=== PATIENT | male | born 1950 | race Caucasian/White ===

== ENCOUNTER 2023-10-15 10:03 | Inpatient (IN) ==
[2023-10-15 10:50] LABS: Hematocrit (blood only) 39.4 % (42.0-52.0); Hemoglobin 13.9 g/dl (14.0-18.0); Mean Corpuscular Hemoglobin 33.1 pg (25.0-34.0); Mean Corpuscular Hgb Conc 35.3 g/dL (32.0-36.0); Mean Corpuscular Volume 93.8 fL (80.0-100.0); Mean Platelet Volume 10.8 fL (9.4-12.4); Platelet Count 146 K/uL (130-400); RDW Coefficient of Variation 13.3 % (11.5-14.5); RDW Standard Deviation 45.8 fL (36.4-46.3); White Blood Count 11.34 K/ul (4.8-10.8)
[2023-10-15 11:08] LABS: Alanine Aminotransferase 29 U/L (7-52); Albumin Globulin Ratio 1.4 (0.9-2); Albumin Level 4.6 gm/dl (3.4-5.0); Alkaline Phosphatase 62 U/L (34-104); Anion Gap 10 (3-11); Bilirubin,Total 0.7 mg/dl (0.2-1.0); Blood Urea Nitrogen 17 mg/dl (6-23); Calcium 9.7 mg/dl (8.6-10.3); Carbon Dioxide 25 mmol/L (21-32); Chloride 97 mmol/L (98-107); Creatinine Clr Calc Pharmacy 59.9 ml/min; Est GFR (African American) 74.3 ml/min; Est GFR (Non-African American) 64.1 ml/min; Globulin 3.2 gm/dl (2.5-4.0); Glucose 151 mg/dl (70-99(Fasting)); Magnesium 1.6 mg/dl (1.7-2.4); Sodium 132 mmol/L (136-145); Total Protein 7.8 gm/dl (6.0-8.3)
[2023-10-15 11:13] LABS: Basophils # (auto) 0.04 K/uL (0.00-0.20); Basophils % (auto) 0.4 %; Eosinophils # (auto) 0.07 K/uL (0.00-0.50); Eosinophils % (auto) 0.6 %; Immature Granulocytes # (auto) 0.05 K/uL (0.01-0.20); Immature Granulocytes % (auto) 0.4 %; Lymphocytes # (auto) 0.37 K/uL (1.20-3.40); Lymphocytes % (auto) 3.3 %; Monocytes # (auto) 0.48 K/uL (0.11-0.59); Monocytes % (auto) 4.2 %; Neutrophils # (auto) 10.33 K/uL (1.40-6.50); Neutrophils % (auto) 91.1 %; Ovalocytes 1+
[2023-10-15 11:17] LABS: Partial Thromboplastin Ratio 1.2; Partial Thromboplastin Time 35 Seconds (21-31)
--- NOTE | 2023-10-15 11:20 | XRay Report ---
XR chest 1V portable CLINICAL HISTORY: Sepsis TECHNIQUE: Single frontal radiograph of the chest was obtained. Comparison: Comparison is made to chest radiograph 10/14/2023 FINDINGS: No lines and tubes are seen. The cardiomediastinal silhouette is normal. The lungs are clear. Bluntin g of the left costophrenic angle is secondary to extrapleural fat, although a small superimposed effu indio cannot be excluded. IMPRESSION: No acute abnormalities and in particular no radiographic evidence of pneumonia. Exclude a small left effusion. ACT 112: Negative or not required by law. Electronically signed by: David Desai M.D. 10/15/2023 11:18 AM
[2023-10-15] MEDS: SODIUM CHLORIDE 0.9% 500 ML IV ONE ×2 (11:33→15:10)
--- NOTE | 2023-10-15 12:03 | Emergency Department Note ---
ED Provider Note CHIEF COMPLAINT: This patient is HISTORY OF PRESENT ILLNESS: This [] patient presents to the emergency department [] REVIEW OF SYSTEMS: A review of systems was performed with positives and pertinent negatives listed in the history of present illness. 10 systems were reviewed and are otherwise negative. ALLERGIES: see below MEDICATIONS: see below PMH: see below SOCIAL HISTORY: see below DDx: [] PHYSICAL EXAM: Vital signs reviewed. General: Well-appearing, in no significant distress. HEENT: No scleral icterus, PERRLA, neck supple. Atraumatic. Cardiovascular: Regular rate and rhythm, no extra sounds. Pulmonary: Clear to auscultation bilaterally, normal work of breathing. Abdomen: Soft, nontender, nondistended, positive bowel sounds. Musculoskeletal: Atraumatic, no peripheral edema. Neurologic: Patient awake alert and oriented x 3, speech is clear Skin: Warm, dry, no rash EMERGENCY DEPARTMENT COURSE/MDM: [] MONITORING: An order for cardiac monitoring was placed and the patient is noted to be in a [] at [] beats per minute. RADIOLOGY: EKG: DISPOSITION: Past Med/Surg History Medical History (Updated 09/24/23 @ 10:[address] MD) Hemorrhoids Blind right eye History of prostate cancer dx'd 2019. hx brachytherapy + external beam radiation History of melanoma Purtscher's retinopathy of right eye Hearing loss GERD (gastroesophageal reflux disease) well controlled, stable per pt Hypertension variable per pt, states often elevated in clinical settings-reports home readings: SBP 110s-170s/DBP 70s per pt Aural vertigo x 1 episode BPH w urinary obs/LUTS Surgical History History of brachytherapy History of arthroscopy of both shoulders H/O melanoma excision History of esophagogastroduodenoscopy (EGD) History of rotator cuff surgery (10/01/18) History of colonoscopy (~02/2015) History of carpal tunnel release of both wrists (~2012) History of surgery on arm (~2012) History of prostate biopsy (11/02/19) History of prostate biopsy (03/23/19) Family History Father No problems noted. Mother Uterine cancer, Onset Age: 80 Brother No problems noted. Sister No problems noted. Son No problems noted. Denies family history of Breast cancer Colorectal cancer Social History Smoking Status: Never smoker Tobacco Type: Cigars Cigarettes Per Day: light cigar- occasional; Second Hand Exposure: No; Do You Dip or Chew Tobacco: No; Hx Alcohol Use: Yes Alcohol type: beer and hard liquor Alcohol Intake Frequency: Monthly or Less Hx Substance Use: No Preferred Language: Afghan Communication Ability: Effective Visual Impairment: Limited Hearing Ability: Use of Hearing Aid Treadle Cut Off Saw Operator Required: No Beliefs That Will Affect Care: None marital status: Current Living Situation: Spouse current occupational status: retired current occupation: Retired Mechanical Repairman Feels Safe at Home: Yes Childhood Exposure to Second-Hand Smoke: Yes Diet: regular Diet Comment: stays away from milk caffeine: Yes (2-3 cups of coffee/day ) during the past year weight has: remained stable Dental Care, Regularly: Yes Physical Activity Frequency Comment: online stretching and yoga Seatbelt Use: always Assistive Devices: Glasses and Hearing Aid - Bilateral Allergies Allergies Allergy/AdvReac Type Severity Reaction Status Date / Time hydrochlorothiazide AdvReac Intermediate Leg Verified 09/24/23 10:02 Swellling Home Meds Home Medications Medication Instructions Recorded Confirmed allopurinol 300 mg tablet 300 mg PO QAM 12/04/20 10/14/23 famotidine 20 mg tablet (Pepcid) 20 mg PO PM 12/04/20 10/14/23 calcium carbonate 600 mg-vitamin 1 tab PO QPM 02/18/22 10/14/23 D3 10 mcg (400 unit) tablet (Calcium with Vitamin D) cholecalciferol (vitamin D3) 25 25 mcg PO QPM 02/18/22 10/14/23 mcg (1,000 unit) capsule docusate sodium 100 mg capsule 100 mg PO BID 02/18/22 10/14/23 (Colace) folic acid 1 mg tablet 2 mg PO QAM 05/25/23 10/14/23 metoprolol succinate 50 mg 50 mg PO QAM 05/25/23 10/14/23 tablet,extended release 24 hr Previous Rx's Medication Instructions Recorded atorvastatin 80 mg tablet (Lipitor) 80 mg PO QPM 90 days #90 tabs 05/21/23 amlodipine 2.5 mg tablet 2.5 mg PO PRN #30 tabs 07/07/23 methotrexate sodium 2.5 mg tablet 2.5 mg PO .COMPLEX #96 tabs 07/20/23 Results & Data (ED) Vital Signs Vital Signs - 24 hr 10/15/23 10:06 10/15/23 10:30 10/15/23 10:32 Temperature 36.8 C Temperature Source Temporal Artery Scan Pulse Rate 120 H 125 H Pulse Rate [Apical] 124 H Respiratory Rate 16 18 Respiratory Effort / Characteristics Non-Labored Respiratory Depth Normal Blood Pressure 192/100 H Blood Pressure [Left Arm] 197/113 H Blood Pressure Mean 130 Blood Pressure Mean [Left Arm] 141 Pulse Oximetry 96 93 Oxygen Delivery Method Room Air Sepsis Recent Fever Within 48 Hours No Sepsis New/Unexplained Change in Mental Status No Sepsis Action Taken by Nursing No Action Required 10/15/23 10:32 Temperature Temperature Source Pulse Rate Pulse Rate [Apical] Respiratory Rate Respiratory Effort / Characteristics Respiratory Depth Blood Pressure Blood Pressure [Left Arm] Blood Pressure Mean Blood Pressure Mean [Left Arm] Pulse Oximetry Oxygen Delivery Method Room Air Sepsis Recent Fever Within 48 Hours Sepsis New/Unexplained Change in Mental Status Sepsis Action Taken by Nursing Laboratory Data 10/15/23 10:24 10/15/23 10:24 Lab Results 10/15/23 Range/Units 10:24 WBC 11.34 H (4.8-10.8) K/ul RBC 4.20 L (4.70-6.10) M/uL Hgb 13.9 L (14.0-18.0) g/dl Hct 39.4 L (42.0-52.0) % MCV 93.8 (80.0-100.0) fL MCH 33.1 (25.0-34.0) pg MCHC 35.3 (32.0-36.0) g/dL RDW Std Deviation 45.8 (36.4-46.3) fL RDW Coeff of Laurie 13.3 (11.5-14.5) % Plt Count 146 (130-400) K/uL MPV 10.8 (9.4-12.4) fL Immature Gran % (Auto) 0.4 % Neut % (Auto) 91.1 % Lymph % (Auto) 3.3 % Stone % (Auto) 4.2 % Eos % (Auto) 0.6 % Baso % (Auto) 0.4 % Neut # (Auto) 10.33 H (1.40-6.50) K/uL Lymph # (Auto) 0.37 L (1.20-3.40) K/uL Stone # (Auto) 0.48 (0.11-0.59) K/uL Eos # (Auto) 0.07 (0.00-0.50) K/uL Baso # (Auto) 0.04 (0.00-0.20) K/uL Immature Gran # (Auto) 0.05 (0.01-0.20) K/uL Ovalocytes 1+ PT 11.0 (9.0-12.0) Seconds INR 1.0 (0.9-1.1) APTT 35 H (21-31) Seconds PTT Ratio 1.2 Sodium 132 L (136-145) mmol/L Potassium TNP Chloride 97 L (98-107) mmol/L Carbon Dioxide 25 (21-32) mmol/L Anion Gap 10 (3-11) BUN 17 (6-23) mg/dl Creatinine 1.13 (0.6-1.4) mg/dl Est Cr Clr Drug Dosing 59.9 ml/min Est GFR ( Amer) 74.3 ml/min Est GFR (Non-Af Amer) 64.1 ml/min BUN/Creatinine Ratio 15.0 (10-20) Glucose 151 H (70-99(Fasting)) mg/dl Lactate 2.0 (0.4-2.0) mmol/L Calcium 9.7 (8.6-10.3) mg/dl Magnesium 1.6 L (1.7-2.4) mg/dl Total Bilirubin 0.7 (0.2-1.0) mg/dl AST TNP ALT 29 (7-52) U/L Alkaline Phosphatase 62 (34-104) U/L Troponin I High Sens 15.0 (0-20) pg/ml Total Protein 7.8 (6.0-8.3) gm/dl Albumin 4.6 (3.4-5.0) gm/dl Globulin 3.2 (2.5-4.0) gm/dl Albumin/Globulin Ratio 1.4 (0.9-2) Procalcitonin 0.08 (0-0.5) ng/ml Administered Medications Discontinued Medications Sodium Chloride (Nss) 500 mls @ 999 mls/hr IV .Q31M ONE Stop: 10/15/23 11:54 Last Admin: 10/15/23 11:33 Dose: 999 mls/hr Documented By: [facility] Imaging Data Radiologist's Impression: Chest X-Ray 10/15/23 10:32 XR chest 1V portable CLINICAL HISTORY: Sepsis TECHNIQUE: Single frontal radiograph of the chest was obtained. Comparison: Comparison is made to chest radiograph 10/14/2023 FINDINGS: No lines and tubes are seen. The cardiomediastinal silhouette is normal. The lungs are clear. Blunting of the left costophrenic angle is secondary to extrapleural fat, although a small superimposed effusion cannot be excluded. IMPRESSION: No acute abnormalities and in particular no radiographic evidence of pneumonia. Exclude a small left effusion. ACT 112: Negative or not required by law. Electronically signed by: David Desai M.D. 10/15/2023 11:18 AM Discharge Plan Visit Data Chief Complaint: Fever Stated Complaint: 102 FEVER ONGOING, WEAKNESS, REF BY DOC, CHEST QING ED Provider: Keshav Richards Forms Stand Al[facility]: [facility] [employer] Prescriptions Prescriptions: No Action calcium carbonate-vitamin D3 [Calcium with Vitamin D] 600 mg-10 mcg (400 unit) tablet 1 tab PO QPM cholecalciferol (vitamin D3) 25 mcg (1,000 unit) capsule 25 mcg PO QPM docusate sodium [Colace] 100 mg capsule 100 mg PO BID allopurinol 300 mg tablet 300 mg PO QAM famotidine [Pepcid] 20 mg tablet 20 mg PO PM atorvastatin [Lipitor] 80 mg tablet 80 mg PO QPM 90 Days Qty: 90 3RF methotrexate sodium 2.5 mg tablet 2.5 mg PO .COMPLEX Qty: 96 0RF Rx Instructions: 8 tabs po once a week in split dose. amlodipine 2.5 mg tablet 2.5 mg PO PRN Qty: 30 2RF Rx Instructions: Take Amlodipine 2.5 mg daily as needed for SBP > 160 mm Hg metoprolol succinate 50 mg tablet extended release 24 hr 50 mg PO QAM folic acid 1 mg tablet 2 mg PO QAM Referrals Referrals: Cassandra Lane MD [Primary Care Provider] -
[2023-10-15] MEDS: SODIUM CHLORIDE 0.9% 1,000 ML IV SCH (12:04)
[2023-10-15 12:14] LABS: Adenovirus PCR Not Detected (NotDetected); Bordetella parapertussis PCR Not Detected (NotDetected); Bordetella pertussis PCR Not Detected (NotDetected); Chlamydia pneumoniae PCR Not Detected (NotDetected); Coronavirus 229E PCR Not Detected (NotDetected); Coronavirus CoV-2 (COVID19)PCR Not Detected (NotDetected); Coronavirus HKU1 PCR Not Detected (NotDetected); Coronavirus NL63 PCR Not Detected (NotDetected); Coronavirus OC43PCR Not Detected (NotDetected); Human Metapneumovirus PCR Not Detected (NotDetected); Influenza A PCR Not Detected (NotDetected); Influenza B PCR Not Detected (NotDetected); Mycoplasma pneumoniae PCR Not Detected (NotDetected); Parainfluenza Virus 1 PCR Not Detected (NotDetected); Parainfluenza Virus 2 PCR Not Detected (NotDetected); Parainfluenza Virus 3 PCR Not Detected (NotDetected); Parainfluenza Virus 4 PCR Not Detected (NotDetected); Respiratory Syncytial VirusPCR Not Detected (NotDetected); Rhinovirus/Enterovirus PCR Not Detected (NotDetected)
[2023-10-15 12:22] LABS: Potassium 3.8 mmol/L (3.5-5.1)
[2023-10-15] MEDS: OPTIRAY 320 125ml IV ONE (12:41)
[2023-10-15] MEDS: ACETAMINOPHEN 1,000 MG/100 ML VIAL IV STA (12:51)
--- NOTE | 2023-10-15 12:58 | CT Scan Report ---
CT angio chest PE protocol CLINICAL HISTORY: SOB, tachy, ?PE TECHNIQUE: Multidetector row helical CT of the chest was performed with angiographic protocol. Avila l and sagittal reformations were obtained. Coronal and sagittal MIPS were obtained from the axial germain a set and were submitted for review. Automated dose lowering techniques and/or adjustment according to patient size were utilized for this exam. CT DOSE: 887.81 mGy.cm Comparison: Comparison is made to CT chest 01/30/[address] abdomen pelvis 04/01/2023 FINDINGS: Lungs and pleura: Bronchiectasis and atelectasis are seen. Interstitial thickening is seen. Faint tr ee-in-bud nodularity is seen in the bilateral upper lobes. There are pulmonary nodules including the followin mm nodule in the right lung base (series 4 image 51). This was not seen on prior CT abdomen pelvis. 3 mm nodule in the left lower lobe (image 71), also not seen on prior CT abdomen pelvis. Heart and pericardium: Heart size is normal. No pericardial effusion. Vessels: Mild atherosclerotic changes in the aorta and coronary arteries. Mediastinum and zakiya: Subcentimeter lymph nodes are seen. Chest wall and lower neck: Unremarkable. Abdomen: A hiatal hernia is seen. Bones: Degenerative changes in the thoracic spine. IMPRESSION: 1. No evidence of pulmonary embolus. 2. Tree in bud nodularity of the bilateral upper lobes may represent infectious/inflammatory process with reactive lymph nodes. 3. New pulmonary nodules in the bilateral lung bases. Three-month follow-up is recommended to exclud e underlying malignancy. ACT 112: Positive. There are findings on this exam that require communication between the performing entity and the patient following Patient Test Result Information Act ([place] Act 112) guidelines. Electronically signed by: David Desai M.D. 10/15/2023 12:56 PM
[2023-10-15 13:45] LABS: Appearance Urine Clear (Clear); Bacteria Urine Automated Negative (Negative); Bilirubin Urine Negative (Negative); Blood Urine 1+ (Negative); Color Urine Yellow; Glucose Urine UA Negative (Negative); Ketones Urine Negative (Negative); Leukocyte Esterase Urine Negative (Negative); Nitrite Urine Negative (Negative); Protein Urine 2+ (Negative); RBC Urine Automated 0-4 /hpf (0-4); Specific Gravity Urine > 1.045 (1.000-1.030); Urobilinogen Urine Negative (Negative); WBC Urine Automated 0 /hpf (0-5); pH Urine 5.5 (4.5-7.5)
--- NOTE | 2023-10-15 14:31 | Emergency Department Note ---
Impression & Plan Febrile illness, acute, Pneumonitis, SIRS (systemic inflammatory response syndrome), Generalized weakness ED Provider Note NAME: MARCO A KAUR AGE: 72 SEX: Male INFORMANT: Patient ED PROVIDER(S): Keshav Richards MD CHIEF COMPLAINT: Fever PLAN: Disposition: Admitted Outpatient prescription management: none Referral: None MEDICAL DECISION MAKING: Patient presented to the emergency room because of complaints of fever. He is increasingly short of breath over the last 3 days and a workup was initiated. Patient was tachycardic. He was hypertensive and initially afebrile. The patient then spiked a fever of 103 here. He was given Tylenol. Fluids were initiated. Chest x-ray was unremarkable. Patient's blood work revealed mild leukocytosis. Chemistry panel was unremarkable. Cardiac troponin was within normal limits. The patient's ECG did show a sinus tachycardia without ischemia. Based upon his complaints and negative chest x-ray CT imaging of the chest was performed. He had inflammatory tree-in-bud opacities noted in the upper lobes. Nodules were noted in the lower lobes that the patient was advised of and also told that he needs repeat imaging in 3 months. was present. Patient's fever did improve. He felt somewhat better after fluids and Tylenol. He was empirically given cefepime and doxycycline. Patient was asked more details about his history. No recent travel. Patient did remember then about a few months ago he had a tick bite. He states he was tested the day that he found the tick and it came back negative for Lyme. Patient denied any rash or joint issues. Laboratory testing for tickborne illness added to his blood work. Discussed treatment options with the patient and with his state of illness over the last 24 hours patient and do not feel he is well enough to go home. Discussed the option of IV antibiotics and inpatient treatment given the pending blood cultures and tickborne labs. Patient and are in agreement and would prefer admission. Consultation was made with Dr. Sean Awan of the [facility] service. Patient was evaluated in the ER for further management. Care/management discussed with: actuary manager Level of care consideration(s): After review of the information above and other included data, I feel the patient requires escalation of care to admission. Triage Nursing notes: reviewed and agree them. Vital Signs: reviewed and remarkable for hypertension and tachycardia Additional History obtained from: none Chronic Medical/Social Conditions affecting care: Hypertension Prior/ Outside/ External records reviewed: none Differential Diagnosis: Viral syndrome, pneumonia, influenza, meningitis, urinary tract infection, sepsis, bacteremia, tickborne illness, as well as other pathologies. Diagnostics, independently interpreted by me: ECG: Twelve-lead ECG reveals sinus tachycardia [address] elevation or depression. No PACs or PVCs. Cardiac Monitoring: Cardiac monitoring ordered by me: The patient was placed on continuous cardiac monitoring and observed. It revealed a sinus tachycardic rhythm at 104 beats per minute without ectopy or evidence of dysrhythmia. Medical decision rules: none Imaging studies: Chest x-ray. Findings: A chest x-ray was performed and revealed no pneumothorax, effusion, infiltrate, pulmonary edema, free air under the diaphragm, or wide mediastinum. Impression: No acute disease. CT PE study reveals tree-in-bud opacities in the upper lobes and scattered nodules in the lower lobes. No pulmonary embolus or pneumothorax. HPI: 72 year old Male arrives for evaluation of fever. Patient notes increasing shortness of breath and fever of the last 3 days. He states that he got much worse over the last 24 hours and is very weak and experiencing fevers, chills, . He did not feel that he could function well due to his illness. He was tested for COVID and the flu and that was negative. Patient denies any sick contacts or recent travel. Pt denies LOC, headache, diaphoresis, visual changes, neck pain, chest pain, breathing difficulties, nausea, vomiting, abdominal pain, back pain, melena, hematochezia, urinary symptoms, numbness, lymphadenopathy, rash, or other complaints. PAST MEDICAL HISTORY: See Below, hypertension PAST SURGICAL HISTORY: See Below, prostate seeds SOCIAL HISTORY: See Below, HOME MEDICATIONS: See Below ALLERGIES: See Below VITALS: See Below PHYSICAL EXAMINATION: GENERAL: Awake, alert, ill-appearing, in no distress HENT: Normocephalic, atraumatic. Oropharynx unremarkable. EYES: Normal conjunctiva. Sclera non-icteric. NECK: Inspection normal. Non-tender. Supple. No nuchal rigidity. FROM. No masses. RESPIRATORY: Clear to auscultation. No wheezes. No rales. Normal respiratory effort. CARDIAC: Nor tachycardic mal rate. Normal rhythm. No murmurs. No rubs. Extremities warm and well perfused. Pulses equal. No JVD. GI: Soft, non-distended. No tenderness to palpation. No rebound or guarding. No masses. RECTAL: Deferred. MUSCULOSKELETAL: Atraumatic. Chest examination reveals no tenderness. The back is symmetrical on inspection without obvious abnormality. There is no CVA tenderness to palpation. No joint edema. LOWER EXTREMITIES: Calves are equal size bilaterally and non-tender. No edema. No discoloration. NEURO: Normal sensorium. No sensory or motor deficits noted. SKIN: Flushed. No rash or jaundice noted. PROCEDURES: none CRITICAL CARE: none OBSERVATION NOTE: none Past Med/Surg History Medical History Hemorrhoids Blind right eye History of prostate cancer dx'd 2019. hx brachytherapy + external beam radiation History of melanoma Purtscher's retinopathy of right eye Hearing loss GERD (gastroesophageal reflux disease) well controlled, stable per pt Hypertension variable per pt, states often elevated in clinical settings-reports home readings: SBP 110s-170s/DBP 70s per pt Aural vertigo x 1 episode BPH w urinary obs/LUTS Surgical History History of brachytherapy History of arthroscopy of both shoulders H/O melanoma excision back History of esophagogastroduodenoscopy (EGD) History of rotator cuff surgery (10/01/18) Left / Right History of colonoscopy (~02/2015) History of carpal tunnel release of both wrists (~2012) History of surgery on arm (~2012) a piece of steel removed > right History of prostate biopsy (11/02/19) Benign History of prostate biopsy (03/23/19) Mack 3+3 Family History Father , Passed age 88 of heart failure No problems noted. Mother , Passed age 92 of natural causes Uterine cancer, Onset Age: 80 had RXT Brother , Passed age 65 of scleroderma No problems noted. Sister , Passed age 61 of scleroderma No problems noted. Son No problems noted. Denies family history of Breast cancer Colorectal cancer Social History Smoking Status: Never smoker Tobacco Type: Cigars Cigarettes Per Day: light cigar- occasional; Second Hand Exposure: No; Do You Dip or Chew Tobacco: No; Hx Alcohol Use: Yes Alcohol type: beer and hard liquor Alcohol Intake Frequency: Monthly or Less Hx Substance Use: No Preferred Language: Portuguese Communication Ability: Effective Visual Impairment: Limited Hearing Ability: Use of Hearing Aid Solution Specialist Required: No Beliefs That Will Affect Care: None marital status: Current Living Situation: Spouse current occupational status: retired current occupation: Retired Mechanical Repairman Feels Safe at Home: Yes Childhood Exposure to Second-Hand Smoke: Yes Diet: regular Diet Comment: stays away from milk caffeine: Yes (2-3 cups of coffee/day ) during the past year weight has: remained stable Dental Care, Regularly: Yes Physical Activity Frequency Comment: online stretching and yoga Seatbelt Use: always Assistive Devices: Glasses and Hearing Aid - Bilateral Allergies Allergies Allergy/AdvReac Type Severity Reaction Status Date / Time hydrochlorothiazide AdvReac Intermediate Leg Verified 09/24/23 [facility] Home Medications Medication Instructions Recorded Confirmed allopurinol 300 mg tablet 300 mg PO QAM 12/04/20 10/15/23 famotidine 20 mg tablet (Pepcid) 20 mg PO PM 12/04/20 10/15/23 calcium carbonate 600 mg-vitamin 1 tab PO QPM 02/18/22 10/15/23 D3 10 mcg (400 unit) tablet (Calcium with Vitamin D) cholecalciferol (vitamin D3) 25 25 mcg PO QPM 02/18/22 10/15/23 mcg (1,000 unit) capsule docusate sodium 100 mg capsule 100 mg PO BID 02/18/22 10/15/23 (Colace) folic acid 1 mg tablet 2 mg PO QAM 05/25/23 10/15/23 metoprolol succinate 50 mg 50 mg PO QAM 05/25/23 10/15/23 tablet,extended release 24 hr Tylenol 1 tab PO UD 10/15/23 10/15/23 ibuprofen 1 tab PO UD 10/15/23 10/15/23 Previous Rx's Medication Instructions Recorded atorvastatin 80 mg tablet (Lipitor) 80 mg PO QPM 90 days #90 tabs 05/21/23 amlodipine 2.5 mg tablet 2.5 mg PO PRN #30 tabs 07/07/23 methotrexate sodium 2.5 mg tablet 2.5 mg PO .COMPLEX #96 tabs 10/15/23 Results & Data (ED) Vital Signs Vital Signs - 24 hr 10/15/23 10:06 10/15/23 10:30 10/15/23 10:30 Temperature 36.8 C Temperature Source Temporal Artery Scan Pulse Rate 120 H Pulse Rate [Apical] 124 H Pulse Rate from SpO2 Sensor Respiratory Rate 16 18 Respiratory Effort / Characteristics Non-Labored Respiratory Depth Normal Blood Pressure 192/100 H 197/113 H Blood Pressure [Left Arm] 197/113 H Blood Pressure Mean 130 149 Blood Pressure Mean [Left Arm] 141 Pulse Oximetry 96 93 Oxygen Delivery Method Room Air Sepsis Recent Fever Within 48 Hours No Sepsis New/Unexplained Change in Mental Status No Sepsis Action Taken by Nursing No Action Required 10/15/23 10:31 10/15/23 10:32 10/15/23 10:32 Temperature Temperature Source Pulse Rate 126 H 125 H Pulse Rate [Apical] Pulse Rate from SpO2 Sensor 126 H Respiratory Rate 21 Respiratory Effort / Characteristics Respiratory Depth Blood Pressure Blood Pressure [Left Arm] Blood Pressure Mean Blood Pressure Mean [Left Arm] Pulse Oximetry 94 Oxygen Delivery Method Room Air Sepsis Recent Fever Within 48 Hours Sepsis New/Unexplained Change in Mental Status Sepsis Action Taken by Nursing 10/15/23 11:00 10/15/23 11:00 10/15/23 11:30 Temperature Temperature Source Pulse Rate 127 H 123 H Pulse Rate [Apical] Pulse Rate from SpO2 Sensor 126 H 123 H Respiratory Rate 15 16 Respiratory Effort / Characteristics Respiratory Depth Blood Pressure 198/111 H Blood Pressure [Left Arm] Blood Pressure Mean 164 Blood Pressure Mean [Left Arm] Pulse Oximetry 94 94 Oxygen Delivery Method Sepsis Recent Fever Within 48 Hours Sepsis New/Unexplained Change in Mental Status Sepsis Action Taken by Nursing 10/15/23 11:30 10/15/23 12:00 10/15/23 12:00 Temperature Temperature Source Pulse Rate Pulse Rate [Apical] Pulse Rate from SpO2 Sensor 118 H Respiratory Rate 20 Respiratory Effort / Characteristics Respiratory Depth Blood Pressure 188/109 H 186/101 H Blood Pressure [Left Arm] Blood Pressure Mean 145 131 Blood Pressure Mean [Left Arm] Pulse Oximetry 98 Oxygen Delivery Method Sepsis Recent Fever Within 48 Hours Sepsis New/Unexplained Change in Mental Status Sepsis Action Taken by Nursing 10/15/23 12:04 10/15/23 12:30 10/15/23 12:30 Temperature 39.5 C H Temperature Source Oral Pulse Rate 123 H Pulse Rate [Apical] Pulse Rate from SpO2 Sensor Respiratory Rate 26 H Respiratory Effort / Characteristics Respiratory Depth Blood Pressure 188/100 H Blood Pressure [Left Arm] Blood Pressure Mean 123 Blood Pressure Mean [Left Arm] Pulse Oximetry Oxygen Delivery Method Sepsis Recent Fever Within 48 Hours Sepsis New/Unexplained Change in Mental Status Sepsis Action Taken by Nursing 10/15/23 13:00 10/15/23 13:00 10/15/23 13:16 Temperature 37.6 C H Temperature Source Oral Pulse Rate 116 H Pulse Rate [Apical] Pulse Rate from SpO2 Sensor 116 H Respiratory Rate 22 Respiratory Effort / Characteristics Respiratory Depth Blood Pressure 170/88 H Blood Pressure [Left Arm] Blood Pressure Mean 125 Blood Pressure Mean [Left Arm] Pulse Oximetry 92 Oxygen Delivery Method Sepsis Recent Fever Within 48 Hours Sepsis New/Unexplained Change in Mental Status Sepsis Action Taken by Nursing 10/15/23 13:30 10/15/23 13:30 10/15/23 14:00 Temperature Temperature Source Pulse Rate 110 H Pulse Rate [Apical] Pulse Rate from SpO2 Sensor 110 H Respiratory Rate 18 Respiratory Effort / Characteristics Respiratory Depth Blood Pressure 131/84 133/83 Blood Pressure [Left Arm] Blood Pressure Mean 107 108 Blood Pressure Mean [Left Arm] Pulse Oximetry 93 Oxygen Delivery Method Sepsis Recent Fever Within 48 Hours Sepsis New/Unexplained Change in Mental Status Sepsis Action Taken by Nursing 10/15/23 14:00 10/15/23 14:30 10/15/23 14:30 Temperature Temperature Source Pulse Rate 104 H 100 H Pulse Rate [Apical] Pulse Rate from SpO2 Sensor 104 H 101 H Respiratory Rate 20 18 Respiratory Effort / Characteristics Respiratory Depth Blood Pressure 152/82 H Blood Pressure [Left Arm] Blood Pressure Mean 105 Blood Pressure Mean [Left Arm] Pulse Oximetry 93 94 Oxygen Delivery Method Sepsis Recent Fever Within 48 Hours Sepsis New/Unexplained Change in Mental Status Sepsis Action Taken by Nursing 10/15/23 15:00 10/15/23 15:00 10/15/23 15:30 Temperature Temperature Source Pulse Rate 94 H Pulse Rate [Apical] Pulse Rate from SpO2 Sensor 96 H Respiratory Rate 18 Respiratory Effort / Characteristics Respiratory Depth Blood Pressure 156/84 H 149/85 H Blood Pressure [Left Arm] Blood Pressure Mean 109 113 Blood Pressure Mean [Left Arm] Pulse Oximetry 94 Oxygen Delivery Method Sepsis Recent Fever Within 48 Hours Sepsis New/Unexplained Change in Mental Status Sepsis Action Taken by Nursing 10/15/23 15:30 10/15/23 15:58 10/15/23 16:00 Temperature Temperature Source Pulse Rate 95 H 93 H Pulse Rate [Apical] Pulse Rate from SpO2 Sensor 95 H Respiratory Rate 19 Respiratory Effort / Characteristics Respiratory Depth Blood Pressure 150/95 H Blood Pressure [Left Arm] Blood Pressure Mean 111 Blood Pressure Mean [Left Arm] Pulse Oximetry 96 Oxygen Delivery Method Sepsis Recent Fever Within 48 Hours Sepsis New/Unexplained Change in Mental Status Sepsis Action Taken by Nursing 10/15/23 16:00 10/15/23 16:30 10/15/23 16:30 Temperature Temperature Source Pulse Rate 96 H 96 H Pulse Rate [Apical] Pulse Rate from SpO2 Sensor 89 96 H Respiratory Rate 20 26 H Respiratory Effort / Characteristics Respiratory Depth Blood Pressure 155/83 H Blood Pressure [Left Arm] Blood Pressure Mean 109 Blood Pressure Mean [Left Arm] Pulse Oximetry 93 97 Oxygen Delivery Method Sepsis Recent Fever Within 48 Hours Sepsis New/Unexplained Change in Mental Status Sepsis Action Taken by Nursing 10/15/23 17:00 10/15/23 17:00 10/15/23 17:34 Temperature Temperature Source Pulse Rate 98 H 118 H Pulse Rate [Apical] Pulse Rate from SpO2 Sensor 98 H 117 H Respiratory Rate 19 19 Respiratory Effort / Characteristics Respiratory Depth Blood Pressure 170/92 H Blood Pressure [Left Arm] Blood Pressure Mean 129 Blood Pressure Mean [Left Arm] Pulse Oximetry 97 97 Oxygen Delivery Method Sepsis Recent Fever Within 48 Hours Sepsis New/Unexplained Change in Mental Status Sepsis Action Taken by Nursing 10/15/23 17:36 Temperature 37.5 C Temperature Source Oral Pulse Rate Pulse Rate [Apical] Pulse Rate from SpO2 Sensor Respiratory Rate Respiratory Effort / Characteristics Respiratory Depth Blood Pressure Blood Pressure [Left Arm] Blood Pressure Mean Blood Pressure Mean [Left Arm] Pulse Oximetry Oxygen Delivery Method Sepsis Recent Fever Within 48 Hours Sepsis New/Unexplained Change in Mental Status Sepsis Action Taken by Nursing Laboratory Data 10/15/23 10:24 10/15/23 11:46 Lab Results 10/15/23 10/15/23 10/15/23 Range/Units 10:24 11:03 11:46 WBC 11.34 H (4.8-10.8) K/ul RBC 4.20 L (4.70-6.10) M/uL Hgb 13.9 L (14.0-18.0) g/dl Hct 39.4 L (42.0-52.0) % MCV 93.8 (80.0-100.0) fL MCH 33.1 (25.0-34.0) pg MCHC 35.3 (32.0-36.0) g/dL RDW Std Deviation 45.8 (36.4-46.3) fL RDW Coeff of Laurie 13.3 (11.5-14.5) % Plt Count 146 (130-400) K/uL MPV 10.8 (9.4-12.4) fL Immature Gran % (Auto) 0.4 % Neut % (Auto) 91.1 % Lymph % (Auto) 3.3 % [place] % (Auto) 4.2 % Eos % (Auto) 0.6 % Baso % (Auto) 0.4 % Neut # (Auto) 10.33 H (1.40-6.50) K/uL Lymph # (Auto) 0.37 L (1.20-3.40) K/uL [place] # (Auto) 0.48 (0.11-0.59) K/uL Eos # (Auto) 0.07 (0.00-0.50) K/uL Baso # (Auto) 0.04 (0.00-0.20) K/uL Immature Gran # (Auto) 0.05 (0.01-0.20) K/uL Ovalocytes 1+ PT 11.0 (9.0-12.0) Seconds INR 1.0 (0.9-1.1) APTT 35 H (21-31) Seconds PTT Ratio 1.2 Sodium 132 L (136-145) mmol/L Potassium TNP 3.8 Chloride 97 L (98-107) mmol/L Carbon Dioxide 25 (21-32) mmol/L Anion Gap 10 (3-11) BUN 17 (6-23) mg/dl Creatinine 1.13 (0.6-1.4) mg/dl Est Cr Clr Drug Dosing 59.9 ml/min Est GFR ( Amer) 74.3 ml/min Est GFR (Non-Af Amer) 64.1 ml/min BUN/Creatinine Ratio 15.0 (10-20) Glucose 151 H (70-99(Fasting)) mg/dl Lactate 2.0 (0.4-2.0) mmol/L Calcium 9.7 (8.6-10.3) mg/dl Magnesium 1.6 L (1.7-2.4) mg/dl Total Bilirubin 0.7 (0.2-1.0) mg/dl AST TNP 24 ALT 29 (7-52) U/L Alkaline Phosphatase 62 (34-104) U/L Troponin I High Sens 15.0 (0-20) pg/ml Total Protein 7.8 (6.0-8.3) gm/dl Albumin 4.6 (3.4-5.0) gm/dl Globulin 3.2 (2.5-4.0) gm/dl Albumin/Globulin Ratio 1.4 (0.9-2) Procalcitonin 0.08 (0-0.5) ng/ml Urine Color Urine Appearance (Clear) Urine pH (4.5-7.5) Ur Specific [place] (1.000-1.030) Urine Protein (Negative) Urine Glucose (UA) (Negative) Urine Ketones (Negative) Urine Blood (Negative) Urine Nitrite (Negative) Urine Bilirubin (Negative) Urine Urobilinogen (Negative) Ur Leukocyte Esterase (Negative) Urine WBC (Auto) (0-5) /hpf Urine RBC (Auto) (0-4) /hpf U Hyaline Cast (Auto) (0-5) /lpf U Epithel Cells (Auto) (0-5) /lpf Urine Bacteria (Auto) (Negative) Adenovirus (PCR) Not Detected (NotDetected) Anaplasma Smear See Comment Babesia Smear See Comment B. pertussis DNA (PCR) Not Detected (NotDetected) B.parapertussis DNA PCR Not Detected (NotDetected) Lyme Disease IgG Ab (Negative) Lyme Disease IgM Ab (Negative) C. pneumoniae DNA (PCR) Not Detected (NotDetected) Coronavirus OC43 (PCR) Not Detected (NotDetected) Coronavirus HKU1 (PCR) Not Detected (NotDetected) Coronavirus 229E (PCR) Not Detected (NotDetected) SARS-CoV-2 (PCR) Not Detected (NotDetected) Coronavirus NL63 (PCR) Not Detected (NotDetected) Human Metapneumovir PCR Not Detected (NotDetected) Influenza Type A (PCR) Not Detected (NotDetected) Influenza Type B (PCR) Not Detected (NotDetected) M. pneumoniae (PCR) Not Detected (NotDetected) Parainfluenza 1 (PCR) Not Detected (NotDetected) Parainfluenza 2 (PCR) Not Detected (NotDetected) Parainfluenza 3 (PCR) Not Detected (NotDetected) Parainfluenza 4 (PCR) Not Detected (NotDetected) RSV (PCR) Not Detected (NotDetected) Entero/Rhino (PCR) Not Detected (NotDetected) 10/15/23 10/15/23 Range/Units 13:13 15:14 WBC (4.8-10.8) K/ul RBC (4.70-6.10) M/uL Hgb (14.0-18.0) g/dl Hct (42.0-52.0) % MCV (80.0-100.0) fL MCH (25.0-34.0) pg MCHC (32.0-36.0) g/dL RDW Std Deviation (36.4-46.3) fL RDW Coeff of Laurie (11.5-14.5) % Plt Count (130-400) K/uL MPV (9.4-12.4) fL Immature Gran % (Auto) % Neut % (Auto) % Lymph % (Auto) % [place] % (Auto) % Eos % (Auto) % Baso % (Auto) % Neut # (Auto) (1.40-6.50) K/uL Lymph # (Auto) (1.20-3.40) K/uL [place] # (Auto) (0.11-0.59) K/uL Eos # (Auto) (0.00-0.50) K/uL Baso # (Auto) (0.00-0.20) K/uL Immature Gran # (Auto) (0.01-0.20) K/uL Ovalocytes PT (9.0-12.0) Seconds INR (0.9-1.1) APTT (21-31) Seconds PTT Ratio Sodium (136-145) mmol/L Potassium Chloride (98-107) mmol/L Carbon Dioxide (21-32) mmol/L Anion Gap (3-11) BUN (6-23) mg/dl Creatinine (0.6-1.4) mg/dl Est Cr Clr Drug Dosing ml/min Est GFR ( Amer) ml/min Est GFR (Non-Af Amer) ml/min BUN/Creatinine Ratio (10-20) Glucose (70-99(Fasting)) mg/dl Lactate (0.4-2.0) mmol/L Calcium (8.6-10.3) mg/dl Magnesium (1.7-2.4) mg/dl Total Bilirubin (0.2-1.0) mg/dl AST ALT (7-52) U/L Alkaline Phosphatase (34-104) U/L Troponin I High Sens (0-20) pg/ml Total Protein (6.0-8.3) gm/dl Albumin (3.4-5.0) gm/dl Globulin (2.5-4.0) gm/dl Albumin/Globulin Ratio (0.9-2) Procalcitonin (0-0.5) ng/ml Urine Color Yellow Urine Appearance Clear (Clear) Urine pH 5.5 (4.5-7.5) Ur Specific [place] > 1.045 H (1.000-1.030) Urine Protein 2+ H (Negative) Urine Glucose (UA) Negative (Negative) Urine Ketones Negative (Negative) Urine Blood 1+ H (Negative) Urine Nitrite Negative (Negative) Urine Bilirubin Negative (Negative) Urine Urobilinogen Negative (Negative) Ur Leukocyte Esterase Negative (Negative) Urine WBC (Auto) 0 (0-5) /hpf Urine RBC (Auto) 0-4 (0-4) /hpf U Hyaline Cast (Auto) 1-5 (0-5) /lpf U Epithel Cells (Auto) 5-10 H (0-5) /lpf Urine Bacteria (Auto) Negative (Negative) Adenovirus (PCR) (NotDetected) Anaplasma Smear Babesia Smear B. pertussis DNA (PCR) (NotDetected) B.parapertussis DNA PCR (NotDetected) Lyme Disease IgG Ab Negative (Negative) Lyme Disease IgM Ab Negative (Negative) C. pneumoniae DNA (PCR) (NotDetected) Coronavirus OC43 (PCR) (NotDetected) Coronavirus HKU1 (PCR) (NotDetected) Coronavirus 229E (PCR) (NotDetected) SARS-CoV-2 (PCR) (NotDetected) Coronavirus NL63 (PCR) (NotDetected) Human Metapneumovir PCR (NotDetected) Influenza Type A (PCR) (NotDetected) Influenza Type B (PCR) (NotDetected) M. pneumoniae (PCR) (NotDetected) Parainfluenza 1 (PCR) (NotDetected) Parainfluenza 2 (PCR) (NotDetected) Parainfluenza 3 (PCR) (NotDetected) Parainfluenza 4 (PCR) (NotDetected) RSV (PCR) (NotDetected) Entero/Rhino (PCR) (NotDetected) Administered Medications Sodium Chloride (Nss) 1,000 mls @ 125 mls/hr IV .Q8H KAROLINE Stop: 11/14/23 11:29 Last Admin: 10/15/23 12:04 Dose: 125 mls/hr Documented By: SARAH Discontinued Medications Sodium Chloride (Nss) 500 mls @ 999 mls/hr IV .Q31M ONE Stop: 10/15/23 11:54 Last Infusion: 10/15/23 12:02 Dose: Infused Documented By: Admin: 10/15/23 11:33 Dose: 999 mls/hr Documented By: SARAH Acetaminophen (Ofirmev) 1,000 mg in 100 mls @ 400 mls/hr IV NOW STA Stop: 10/15/23 12:44 Last Infusion: 10/15/23 13:17 Dose: Infused Documented By: Admin: 10/15/23 12:51 Dose: 400 mls/hr Documented By: SERGO Cefepime HCl (Maxipime) 2,000 mg in 20 mls @ 5 mls/min IV NOW STA; Protocol Stop: 10/15/23 14:06 Last Admin: 10/15/23 15:08 Dose: 5 mls/min Documented By: SARAH Doxycycline Hyclate 100 mg/ (Dextrose) 100 mls @ 50 mls/hr IV NOW STA Stop: 10/15/23 16:02 Last Infusion: 10/15/23 17:42 Dose: Infused Documented By: Admin: 10/15/23 15:12 Dose: 50 mls/hr Documented By: SARAH Sodium Chloride (Nss) 500 mls @ 999 mls/hr IV .Q31M ONE Stop: 10/15/23 14:58 Last Infusion: 10/15/23 15:56 Dose: Infused Documented By: Admin: 10/15/23 15:10 Dose: 999 mls/hr Documented By: SARAH Ioversol (Optiray 320 125ml) 119 ml IV ONCE ONE Stop: 10/15/23 12:42 Last Admin: 10/15/23 12:41 Dose: 119 ml Documented By: JOEY Imaging Data Radiologist's Impression: Chest X-Ray 10/15/23 10:32 XR chest 1V portable CLINICAL HISTORY: Sepsis TECHNIQUE: Single frontal radiograph of the chest was obtained. Comparison: Comparison is made to chest radiograph 10/14/2023 FINDINGS: No lines and tubes are seen. The cardiomediastinal silhouette is normal. The lungs are clear. Blunting of the left costophrenic angle is secondary to extrapleural fat, although a small superimposed effusion cannot be excluded. IMPRESSION: No acute abnormalities and in particular no radiographic evidence of pneumonia. Exclude a small left effusion. ACT 112: Negative or not required by law. Electronically signed by: David Desai M.D. 10/15/2023 11:18 AM Chest CTA 10/15/23 11:48 CT angio chest PE protocol CLINICAL HISTORY: SOB, tachy, ?PE TECHNIQUE: Multidetector row helical CT of the chest was performed with angiographic protocol. Coronal and sagittal reformations were obtained. Coronal and sagittal MIPS were obtained from the axial data set and were submitted for review. Automated dose lowering techniques and/or adjustment according to patient size were utilized for this exam. CT DOSE: 887.81 mGy.cm Comparison: Comparison is made to CT chest 01/30/[address] abdomen pelvis 04/01/2023 FINDINGS: Lungs and pleura: Bronchiectasis and atelectasis are seen. Interstitial thickening is seen. Faint tree-in-bud nodularity is seen in the bilateral upper lobes. There are pulmonary nodules including the followin mm nodule in the right lung base (series 4 image 51). This was not seen on prior CT abdomen pelvis. 3 mm nodule in the left lower lobe (image 71), also not seen on prior CT abdomen pelvis. Heart and pericardium: Heart size is normal. No pericardial effusion. Vessels: Mild atherosclerotic changes in the aorta and coronary arteries. Mediastinum and zakiya: Subcentimeter lymph nodes are seen. Chest wall and lower neck: Unremarkable. Abdomen: A hiatal hernia is seen. Bones: Degenerative changes in the thoracic spine. IMPRESSION: 1. No evidence of pulmonary embolus. 2. Tree in bud nodularity of the bilateral upper lobes may represent infectious/inflammatory process with reactive lymph nodes. 3. New pulmonary nodules in the bilateral lung bases. Three-month follow-up is recommended to exclude underlying malignancy. ACT 112: Positive. There are findings on this exam that require communication between the performing entity and the patient following Patient Test Result Information Act ([place] Act 112) guidelines. Electronically signed by: David Desai M.D. 10/15/2023 12:56 PM Discharge Plan Visit Data Chief Complaint: Fever Stated Complaint: 102 FEVER ONGOING, WEAKNESS, REF BY DOC, CHEST QING ED Provider: Keshav Richards Discharge Problem: Febrile illness, acute, Pneumonitis, SIRS (systemic inflammatory response syndrome), Generalized weakness Forms Stand Alone Forms: My Datam Prescriptions Prescriptions: No Action calcium carbonate-vitamin D3 [Calcium with Vitamin D] 600 mg-10 mcg (400 unit) tablet 1 tab PO QPM cholecalciferol (vitamin D3) 25 mcg (1,000 unit) capsule 25 mcg PO QPM docusate sodium [Colace] 100 mg capsule 100 mg PO BID allopurinol 300 mg tablet 300 mg PO QAM famotidine [Pepcid] 20 mg tablet 20 mg PO PM atorvastatin [Lipitor] 80 mg tablet 80 mg PO QPM 90 Days Qty: 90 3RF methotrexate sodium 2.5 mg tablet 2.5 mg PO .COMPLEX Qty: 96 0RF Rx Instructions: 8 tabs po once a week in split dose. amlodipine 2.5 mg tablet 2.5 mg PO PRN Qty: 30 2RF Rx Instructions: Take Amlodipine 2.5 mg daily as needed for SBP > 160 mm Hg metoprolol succinate 50 mg tablet extended release 24 hr 50 mg PO QAM folic acid 1 mg tablet 2 mg PO QAM Tylenol 1 tab PO UD Rx Instructions: as directed ibuprofen 1 tab PO UD Rx Instructions: as directed Referrals Referrals: Cassandra Lane MD [Primary Care Provider] -
[2023-10-15] MEDS: CEFEPIME 2,000 MG/20 ML VIAL IV STA (15:08)
[2023-10-15] MEDS: DOXYCYCLINE HYCLATE 100 MG in DEXTROSE 5% MINI-B 100 ML IV STA (15:12)
[2023-10-15 16:18] LABS: Lyme Ab IgG w/WB Rflx Negative (Negative); Lyme Ab IgM w/WB Rflx Negative (Negative)
--- NOTE | 2023-10-15 17:13 | History & Physical Report ---
Date of Service October 15, 2023 Assessment & Plan (1) Fever: Plan: Fever of unclear source Patient with 2 days of fever, chills, rigors UA is not infected appearing. Patient does have mild and dysuria based but has had this since having radiatio/significance and has not changed CTA of the chest is with upper lobe tree-in-bud opacities suspicious for pneumonia. Bio fire is negative. Procalcitonin is negative. No lobar consolidation is present Patient is on methotrexate at baseline Lyme test and repeat test is negative, tickborne PCR panel is pending a send out; there is no transaminitis or leukopenia to suggest anaplasmosis Patient is empirically covered with cefepime/doxycycline which is continued. MRSA nare is pending Blood cultures are pending follow for speciation Patient denies joint and back pain. No signs of cellulitis on exam CRP/ESR ordered, will evaluate for infectious causes first and follow blood cultures. DDx includes vasculitic fever/flare. 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 He had no trauma preceding his vision loss, did have collateral vessel development. He has baseline only able to see some shadowing in the center of his vision out of his right eye -No acute change in vision. Patient takes methotrexate on Tuesdays. No acute change in management at this time (3) GERD (gastroesophageal reflux disease): Plan: GERD Continue Pepcid daily (4) Hypertension: Plan: Continue metoprolol (5) History of radiation therapy: Plan: History of prostate cancer s/p radiation therapy/seed implantation UA uninfected appearing, mild epithelial cell contamination (6) Gout: Plan: History of gout Continue allopurinol (7) Hyperlipidemia: Plan: Hyperlipidemia Continue statin (8) Pulmonary nodule: Plan: CT-C: New pulmonary nodules are noted in bilateral lung bases and he will require 3-month follow-up to exclude malignancy. DDx includes vasculitic. History of Present Illness Primary Care Provider: Cassandra Lane MD Esteban is a 72-year-old male with a past medical history of GERD, hypertension, ANCA vasculitis, gout, hyperlipidemia who presents to the ER with fever, dyspnea, and tachycardia. Patient had a 103 degree fever while in the ER for which she received Tylenol and fluids. Chest x-ray with no acute findings, patient had mild leukocytosis on initial evaluation. Patient had a sinus tachycardia without ischemic changes and troponin was normal. CT of the chest shows upper lobe tree-in-bud opacities suspicious for infectious versus inflamm atory process with reactive lung nodes. New pulmonary nodules are noted in bilateral lung bases and he will require 3-month follow-up to exclude malignancy. Patient did endorse potential insect/tick bite, he was seen in office and had a Lyme test that day which was negative but did not take doxycycline prophylaxis. Repeat Lyme serology was sent; this was negative and initial Anaplasma smear was negative. PCR tick panel is pending as send out. Bio fire is negative. Reports 2 days ago had a temperature of 100.7*F. Woke up cold, shivering, covered in sweat. Temperature continued to fluctuate and had 'shiver with big shakes'. Hot hot flashes and would wake up sweating over the next 2 days. Increased fatigue. No nausea, vomiting, or diarrhea. mild constipation. No abdominal pain. Mild dry cough which is not new. Sputum has not changed, is clear. No rashes. No chest pain. Feels short of breath and a little tight breathign with no chest pain. Endorses diffuse muscle aches but worst behind his knees and in the thights. Took no medications today. Normal Meds: - Allopurinol for goul - Amlodipine no longer takes - Atorvastatin 80 for HLD - PEPCID daily 20mg - Methotrexate 8 tablets on Tuesdays (4 and 4mg AM/PM) for vasculitis and Purtscher's retinopathy. No longer on steroids. - Metoprolol 50mg AM hx of chronic dysuria since prostate cancer, seed implants No history of heart problems No history oflung problems No history of kidney disease Rare cigar, otherwise no tobacco use Rare social etoh use Leg swelling w hctz, otherwise no med allergies/rnx CODE STATUS: DNR/DNi, discussed at bedside Allergies Allergy/AdvReac Type Severity Reaction Status Date / Time hydrochlorothiazide AdvReac Intermediate Leg Verified 09/24/23 10:02 Swellling Home Medications Medication Instructions Recorded Confirmed Type allopurinol 300 mg tablet 300 mg PO QAM 12/04/20 10/15/23 History famotidine 20 mg tablet (Pepcid) 20 mg PO PM 12/04/20 10/15/23 History calcium carbonate 600 mg-vitamin 1 tab PO QPM 02/18/22 10/15/23 History D3 10 mcg (400 unit) tablet (Calcium with Vitamin D) cholecalciferol (vitamin D3) 25 25 mcg PO QPM 02/18/22 10/15/23 History mcg (1,000 unit) capsule docusate sodium 100 mg capsule 100 mg PO BID 02/18/22 10/15/23 History (Colace) atorvastatin 80 mg tablet (Lipitor) 80 mg PO QPM 90 days #90 tabs 05/21/23 10/15/23 Rx folic acid 1 mg tablet 2 mg PO QAM 05/25/23 10/15/23 History metoprolol succinate 50 mg 50 mg PO QAM 05/25/23 10/15/23 History tablet,extended release 24 hr amlodipine 2.5 mg tablet 2.5 mg PO PRN #30 tabs 07/07/23 10/15/23 Rx Tylenol 1 tab PO UD 10/15/23 10/15/23 History ibuprofen 1 tab PO UD 10/15/23 10/15/23 History methotrexate sodium 2.5 mg tablet 2.5 mg PO .COMPLEX #96 tabs 10/15/23 Rx Past Med/Surg History Medical History Hemorrhoids Blind right eye History of prostate cancer dx'd 2019. hx brachytherapy + external beam radiation History of melanoma Purtscher's retinopathy of right eye Hearing loss GERD (gastroesophageal reflux disease) well controlled, stable per pt Hypertension variable per pt, states often elevated in clinical settings-reports home readings: SBP 110s-170s/DBP 70s per pt Aural vertigo x 1 episode BPH w urinary obs/LUTS Surgical History History of brachytherapy History of arthroscopy of both shoulders H/O melanoma excision back History of esophagogastroduodenoscopy (EGD) History of rotator cuff surgery (10/01/18) Left / Right History of colonoscopy (~02/2015) History of carpal tunnel release of both wrists (~2012) History of surgery on arm (~2012) a piece of steel removed > right History of prostate biopsy (11/02/19) Benign History of prostate biopsy (03/23/19) Mack 3+3 Family History Father , Passed age 88 of heart failure No problems noted. Mother , Passed age 92 of natural causes Uterine cancer, Onset Age: 80 had RXT Brother , Passed age 65 of scleroderma No problems noted. Sister , Passed age 61 of scleroderma No problems noted. Son No problems noted. Denies family history of Breast cancer Colorectal cancer Social History Smoking Status: Never smoker Tobacco Type: Cigars Cigarettes Per Day: light cigar- occasional; Second Hand Exposure: No; Do You Dip or Chew Tobacco: No; Hx Alcohol Use: Yes Alcohol type: beer and hard liquor Alcohol Intake Frequency: Monthly or Less Hx Substance Use: No Preferred Language: Uzbek Communication Ability: Effective Visual Impairment: Limited Hearing Ability: Use of Hearing Aid [employer] Supervisor Required: No Beliefs That Will Affect Care: None marital status: Current Living Situation: Spouse current occupational status: retired current occupation: Retired Mechanical Repairman Feels Safe at Home: Yes Childhood Exposure to Second-Hand Smoke: Yes Diet: regular Diet Comment: stays away from milk caffeine: Yes (2-3 cups of coffee/day ) during the past year weight has: remained stable Dental Care, Regularly: Yes Physical Activity Frequency Comment: online stretching and yoga Seatbelt Use: always Assistive Devices: Glasses and Hearing Aid - Bilateral Physical Exam Physical Exam: General: A&Ox3. NAD. Appears ill but nontoxic HEENT: Atraumatic, normocephalic. Pupils equal and reactive to light. Right eye with limited vision and ability to see only shadows and central vision at baseline, visual acuity intact in left eye without Pulm: CTAB A&P. -wheezes, -rales, -rhonchi. Symmetrical chest rise. No increased work of breathing. No respiratory distress. Cardiac: RRR, -mrg. Radial pulses intact and symmetrical. Abdominal: Nontender, nondistended, soft. BS present. Ext: warm, dry, no rash Results & Data Results & Data Vital Signs (Past 12 Hours) Vital Signs Temp Pulse Pulse Resp BP BP Pulse Ox 10/15/23 16:30 96 H 26 H 97 10/15/23 16:30 155/83 H 10/15/23 16:00 96 H 20 93 10/15/23 16:00 150/95 H 10/15/23 15:58 93 H 10/15/23 15:30 95 H 19 96 10/15/23 15:30 149/85 H 10/15/23 15:00 94 H 18 94 10/15/23 15:00 156/84 H 10/15/23 14:30 100 H 18 94 10/15/23 14:30 152/82 H 10/15/23 14:00 104 H 20 93 10/15/23 14:00 133/83 10/15/23 13:30 110 H 18 93 10/15/23 13:30 131/84 10/15/23 13:16 37.6 C H 10/15/23 13:00 170/88 H 10/15/23 13:00 116 H 22 92 10/15/23 12:30 188/100 H 10/15/23 12:30 123 H 26 H 10/15/23 12:04 39.5 C H 10/15/23 12:00 186/101 H 10/15/23 12:00 20 98 10/15/23 11:30 188/109 H 10/15/23 11:30 123 H 16 94 10/15/23 11:00 198/111 H 10/15/23 11:00 127 H 15 94 10/15/23 10:32 10/15/23 10:32 125 H 10/15/23 10:31 126 H 21 94 10/15/23 10:30 197/113 H 10/15/23 10:30 124 H 18 197/113 H 93 10/15/23 10:06 36.8 C 120 H 16 192/100 H 96 O2 Del Method 10/15/23 16:30 10/15/23 16:30 10/15/23 16:00 10/15/23 16:00 10/15/23 15:58 10/15/23 15:30 10/15/23 15:30 10/15/23 15:00 10/15/23 15:00 10/15/23 14:30 10/15/23 14:30 10/15/23 14:00 10/15/23 14:00 10/15/23 13:30 10/15/23 13:30 10/15/23 13:16 10/15/23 13:00 10/15/23 13:00 10/15/23 12:30 10/15/23 12:30 10/15/23 12:04 10/15/23 12:00 10/15/23 12:00 10/15/23 11:30 10/15/23 11:30 10/15/23 11:00 10/15/23 11:00 10/15/23 10:32 Room Air 10/15/23 10:32 10/15/23 10:31 10/15/23 10:30 10/15/23 10:30 10/15/23 10:06 Room Air PG Care Time/CCT Total # of Minutes Spent Total Time Spent with Patient: Total time spent is greater than 50% in coordination of care (as documented) at patient's floor/unit and/or counseling patient: Coding Level of Care Code 82862 INT INP/OBS CARE 3/75MIN Diagnoses Fever R50.9 Positive PREMA (antinuclear antibody) R76.8 GERD (gastroesophageal reflux disease) K21.9 Hypertension I10 Hypertension type: primary hypertension History of radiation therapy Z92.3 Gout M10.9 Hyperlipidemia E78.5 Pulmonary nodule R91.1 (4) Hypertension Hypertension type: primary hypertension Qualified Code(s): I10 - Essential (primary) hypertension
[2023-10-15 18:35] LABS: C Reactive Protein 17.73 mg/dl (0-0.5)
[2023-10-15] MEDS ORDERED: LABETALOL HCL IV 5 MG/ML 20ML IV PRN (20:28)
[2023-10-15] MEDS: METOPROLOL SUCC 50MG EXT REL TAB PO STA (21:09)
[2023-10-15] MEDS: ACETAMINOPHEN 325 MG TAB PO PRN (21:41)
[2023-10-15] MEDS: CHOLECALCIFEROL 25 MCG (1000 UNITS) TAB PO SCH (22:21)
[2023-10-15] MEDS: FAMOTIDINE 20 MG TAB PO SCH (22:21)
[2023-10-15] MEDS: ENOXAPARIN INJ 40 MG/0.4 ML SYR SQ SCH (22:21)
[2023-10-15] MEDS: DOCUSATE SODIUM 100 MG CAP PO SCH (22:21)
[2023-10-15] MEDS: ATORVASTATIN 40 MG TAB PO SCH (22:21)
[2023-10-16 07:19] LABS: Basophils # (auto) 0.05 K/uL (0.00-0.20); Basophils % (auto) 0.6 %; Eosinophils # (auto) 0.23 K/uL (0.00-0.50); Eosinophils % (auto) 2.9 %; Hemoglobin 11.5 g/dl (14.0-18.0); Immature Granulocytes # (auto) 0.04 K/uL (0.01-0.20); Immature Granulocytes % (auto) 0.5 %; Lymphocytes # (auto) 0.57 K/uL (1.20-3.40); Lymphocytes % (auto) 7.2 %; Mean Corpuscular Hemoglobin 32.7 pg (25.0-34.0); Mean Corpuscular Hgb Conc 33.8 g/dL (32.0-36.0); Mean Corpuscular Volume 96.6 fL (80.0-100.0); Mean Platelet Volume 10.9 fL (9.4-12.4); Monocytes # (auto) 0.71 K/uL (0.11-0.59); Monocytes % (auto) 8.9 %; Neutrophils # (auto) 6.35 K/uL (1.40-6.50); Neutrophils % (auto) 79.9 %; Platelet Count 131 K/uL (130-400); RDW Coefficient of Variation 13.3 % (11.5-14.5); RDW Standard Deviation 46.5 fL (36.4-46.3); Red Blood Count 3.52 M/uL (4.70-6.10); White Blood Count 7.95 K/ul (4.8-10.8)
--- NOTE | 2023-10-16 07:40 | Hospitalist Progress Note ---
Date of Service October 16, 2023 Assessment & Plan (1) Fever: Plan: Fever of unclear source Patient with 2 days pre admission of fever, chills, rigors Patient is on methotrexate at baseline for vasculitis associated with his eye currently on hold UA is not infected appearing. Patient does have mild and dysuria based but has had this since having radiation/significance and has not changed CTA of the chest is with upper lobe tree-in-bud opacities suspicious for pneumonia. CT abd/pelvis unremarkable for infectious etiology Bio fire is negative. Procalcitonin is negative. No lobar consolidation is present Lyme test and repeat test is negative, tickborne PCR panel is pending a send out; there is no transaminitis or leukopenia to suggest anaplasmosis Patient is empirically covered with cefepime/doxycycline which is continued. Blood cultures are pending repeat blood cultures with fever on 10/16/2023 total 4 sets Patient denies joint and back pain. No signs of cellulitis on exam CRP elevated/ESR elevated DDx includes vasculitic fever/flare. 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 He had no trauma preceding his vision loss, did have collateral vessel development. He has baseline only able to see some shadowing in the center of his vision out of his right eye -No acute change in vision. Patient takes methotrexate on Tuesdays. (3) GERD (gastroesophageal reflux disease): Plan: GERD Continue Pepcid daily (4) Hypertension: Plan: Continue metoprolol (5) History of radiation therapy: Plan: History of prostate cancer s/p radiation therapy/seed implantation UA uninfected appearing, mild epithelial cell contamination (6) Gout: Plan: History of gout Continue allopurinol (7) Hyperlipidemia: Plan: Hyperlipidemia Continue statin (8) Pulmonary nodule: Plan: CT-C: New pulmonary nodules are noted in bilateral lung bases and he will require 3-month follow-up to exclude malignancy. DDx includes vasculitic. Plan discussion if fever curve trends down and cultures negative consider home with outpt follow up Admission and Anticipated Discharge Date Admission Date: October 15, 2023 Subjective Last fever 100.9 10/17 0300, has no focal issues but some left hip pain at greater trochanter Although imaging suggests tree-in-bud opacities in the lung continues without pulmonary symptoms CT abd/pelvis also without signs of infectious etiology Physical Exam Physical Exam: Physical exam HEENT is normocephalic atraumatic. Oropharynx is clear without lesions or exudates There is no submandibular or supraclavicular lymphadenopathy Chest is clear with auscultation no evidence of breath loss or wheeze Cardiac exam is regular without murmurs there is no rubs Abdomen is NABS soft and nontender no right upper quadrant tenderness no guarding Extremities are without rashes splinter hemorrhages or tender nodules left leg is greater trochanteric tenderness Results & Data Results & Data Vital Signs (Past 12 Hours) Vital Signs Temp Pulse Pulse Resp BP BP Pulse Ox 10/16/23 02:50 101.3 F H 95 H 14 142/68 H 96 10/15/23 22:54 99.1 F 104 H 21 166/88 H 95 10/15/23 21:55 10/15/23 21:39 100.1 F H 10/15/23 21:37 110 H 18 183/98 H 95 10/15/23 21:37 10/15/23 19:58 113 H 10/15/23 19:52 113 H 21 95 10/15/23 19:52 172/100 H 10/15/23 19:50 114 H 22 95 Pulse Ox O2 Del Method O2 Del Method 10/16/23 02:50 Room Air 10/15/23 22:54 Room Air 10/15/23 21:55 Room Air 10/15/23 21:39 10/15/23 21:37 Room Air 10/15/23 21:37 95 Room Air 10/15/23 19:58 10/15/23 19:52 10/15/23 19:52 10/15/23 19:50 Laboratory Results Reviewed CBC previous ESR50 CRP 17.3 Urine analysis on presentation had 2+ protein 1+ blood Respiratory BioFire negative Tickborne illness panel preliminary negative Q fever pending Rickettsia pending typhus fever pending Previous TB testing December 03 negative Previous hepatitis panel - January 03 Diagnostic Findings December 03 [id number] DNA titer elevated at 1;20 SCL 70 positive P ANCA +1:640 Antimyeloperoxidase high PREMA elevated titer 1: 80 PREMA 2 titer 1: 160 nuclear homogeneous pattern PG Care Time/CCT Total # of Minutes Spent Total Time Spent with Patient: Total time spent is greater than 50% in coordination of care (as documented) at patient's floor/unit and/or counseling patient: Coding Level of Care Code 52697 SUB INP/OBS CARE 3/50MIN Diagnoses Fever R50.9 Positive PREMA (antinuclear antibody) R76.8 GERD (gastroesophageal reflux disease) K21.9 Hypertension I10 Hypertension type: primary hypertension History of radiation therapy Z92.3 Gout M10.9 Hyperlipidemia E78.5 Pulmonary nodule R91.1 (4) Hypertension Hypertension type: primary hypertension Qualified Code(s): I10 - Essential (primary) hypertension
[2023-10-16 07:52] LABS: Albumin Globulin Ratio 1.7 (0.9-2); Albumin Level 3.9 gm/dl (3.4-5.0); BUN Creatinine Ratio 11.8 (10-20); Bilirubin,Total 0.4 mg/dl (0.2-1.0); Calcium 8.6 mg/dl (8.6-10.3); Creatinine Clr Calc Pharmacy 60.6 ml/min; Est GFR (African American) 76.8 ml/min; Est GFR (Non-African American) 66.2 ml/min; Globulin 2.3 gm/dl (2.5-4.0); Potassium 4.2 mmol/L (3.5-5.1); Total Protein 6.2 gm/dl (6.0-8.3)
[2023-10-16] MEDS: MAGNESIUM SULFATE / D5W 1 GM/100 ML BAG IV ONE (08:33)
[2023-10-16] MEDS: FOLIC ACID 1 MG TAB PO SCH (08:33)
[2023-10-16] MEDS: allopurinoL 300 MG TAB PO SCH (08:33)
[2023-10-16] MEDS: METOPROLOL SUCC 50MG EXT REL TAB PO SCH (08:33)
--- NOTE | 2023-10-16 21:36 | Electrocardiogram Report ---
Test Reason : Blood Pressure : / mmHG Vent. Rate : 120 BPM Atrial Rate : 120 BPM P-R Int : 168 ms QRS Dur : 080 ms QT Int : 294 ms P-R-T Axes : 034 061 016 degrees QTc Int : 415 ms Sinus tachycardia Otherwise normal ECG When compared with ECG of 26-FEB-2023 13:46, No significant change was found Confirmed by Nemesio Posada ([id number]) on 10/16/2023 9:35:38 PM Referred By: Confirmed By:Nemesio Posada
[2023-10-17 06:05] LABS: Basophils # (auto) 0.02 K/uL (0.00-0.20); Basophils % (auto) 0.3 %; Eosinophils % (auto) 5.1 %; Hemoglobin 10.9 g/dl (14.0-18.0); Immature Granulocytes # (auto) 0.04 K/uL (0.01-0.20); Immature Granulocytes % (auto) 0.7 %; Lymphocytes # (auto) 0.69 K/uL (1.20-3.40); Lymphocytes % (auto) 11.6 %; Mean Corpuscular Hemoglobin 31.9 pg (25.0-34.0); Mean Corpuscular Hgb Conc 34.1 g/dL (32.0-36.0); Mean Corpuscular Volume 93.6 fL (80.0-100.0); Mean Platelet Volume 10.9 fL (9.4-12.4); Monocytes # (auto) 0.86 K/uL (0.11-0.59); Monocytes % (auto) 14.5 %; Neutrophils # (auto) 4.03 K/uL (1.40-6.50); Neutrophils % (auto) 67.8 %; Platelet Count 124 K/uL (130-400); RDW Coefficient of Variation 13.3 % (11.5-14.5); RDW Standard Deviation 45.5 fL (36.4-46.3); Red Blood Count 3.42 M/uL (4.70-6.10); White Blood Count 5.94 K/ul (4.8-10.8)
--- NOTE | 2023-10-17 16:34 | CT Scan Report ---
ABDOMEN AND PELVIS CT WITH ORAL CONTRAST CT DOSE: 1166.84 mGy.cm HISTORY: Acute generalized abdominal pain. eval for inta abd infection TECHNIQUE: Multiaxial CT images of the abdomen and pelvis were performed following the use of oral co ntrast. A dose lowering technique was utilized adhering to the principles of ALARA. COMPARISON STUDY: CTA chest October 15, 2023, CT abdomen and pelvis 04/01/2023. FINDINGS: Mild cardiomegaly. Subpleural reticulation with bilateral scattered reticulonodular densiti es are new from the 04/01/2023 study with a 7 mm subpleural nodule of the lingula on image 22. A 7 mm solid nodule is noted within the basal right lower lobe on image 43. No free air. The unenhanced spleen, mildly atrophic pancreas and adrenal glands are unremarkable. Contracted gallb ladder with cholelithiasis. No CT evidence of acute cholecystitis. Unremarkable liver. Mild cortical thinning of the kidneys. No hydronephrosis, renal or ureteral calculi. Brachytherapy seeds of the pro state. Urinary bladder wall thickening with partial distention. Moderate-sized fat-filled left inguin al hernia. Atherosclerosis of the aorta. 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 No lymphadenopathy. Contrast is noted within the stomach and small bowel. Colonic diverticulosis. No bowel obstruction or bowel wall thickening. Mild lumbar levoscoliosis. Normal appendix. Unremarkable soft tissues. No acu te fracture. IMPRESSION: 1. Bibasilar reticular nodular densities with pulmonary nodules measuring up to 8 mm. Findings are li reta infectious or inflammatory. A 3-month follow-up chest CT is recommended. 2. No bowel obstruction or bowel wall thickening. 3. Cholelithiasis. 4. Colonic diverticulosis. 5. Additional findings as above. ACT 112: Negative or not required by law. The above report was generated using voice recognition software. It may contain grammatical, syntax o r spelling errors. Dictated: 10/17/2023 1:09 PM Transcribed: 10/17/2023 4:22 PM [email or web address] [id number] [email or web address] Electronically signed by: Curry Orozco M.D. 10/17/2023 4:33 PM
[2023-10-18 06:30] LABS: Basophils # (auto) 0.04 K/uL (0.00-0.20); Basophils % (auto) 0.6 %; Eosinophils # (auto) 0.35 K/uL (0.00-0.50); Eosinophils % (auto) 5.6 %; Hematocrit (blood only) 30.7 % (42.0-52.0); Hemoglobin 10.7 g/dl (14.0-18.0); Immature Granulocytes # (auto) 0.05 K/uL (0.01-0.20); Immature Granulocytes % (auto) 0.8 %; Lymphocytes # (auto) 0.65 K/uL (1.20-3.40); Lymphocytes % (auto) 10.4 %; Mean Corpuscular Hemoglobin 32.3 pg (25.0-34.0); Mean Corpuscular Hgb Conc 34.9 g/dL (32.0-36.0); Mean Corpuscular Volume 92.7 fL (80.0-100.0); Mean Platelet Volume 11.2 fL (9.4-12.4); Monocytes % (auto) 17.6 %; Neutrophils # (auto) 4.07 K/uL (1.40-6.50); Platelet Count 128 K/uL (130-400); RDW Coefficient of Variation 13.1 % (11.5-14.5); RDW Standard Deviation 44.9 fL (36.4-46.3); Red Blood Count 3.31 M/uL (4.70-6.10); White Blood Count 6.26 K/ul (4.8-10.8)
[2023-10-18 07:05] VITALS: RESP 19
[2023-10-18 10:35] VITALS: BP 152/77; PULSE 80; TEMP 97.9; O2SAT 97
[2023-10-18 11:12] LABS: C-Reactive Protein High Sens. >10.0 mg/L
--- NOTE | 2023-10-18 16:43 | Discharge Summary ---
Date of Service October 18, 2023 Admission HPI Per Admitting Provider Esteban is a 72-year-old male with a past medical history of GERD, hypertension, ANCA vasculitis, gout, hyperlipidemia who presents to the ER with fever, dyspnea, and tachycardia. Patient had a 103 degree fever while in the ER for which she received Tylenol and fluids. Chest x-ray with no acute findings, patient had mild leukocytosis on initial evaluation. Patient had a sinus tachycardia without ischemic changes and troponin was normal. CT of the chest shows upper lobe tree-in-bud opacities suspicious for infectious versus inflammatory process with reactive lung nodes. New pulmonary nodules are noted in bilateral lung bases and he will require 3-month follow-up to exclude malignancy. Patient did endorse potential insect/tick bite, he was seen in office and had a Lyme test that day which was negative but did not take doxycycline prophylaxis. Repeat Lyme serology was sent; this was negative and initial Anaplasma smear was negative. PCR tick panel is pending as send out. Bio fire is negative. Reports 2 days ago had a temperature of 100.7*F. Woke up cold, shivering, covered in sweat. Temperature continued to fluctuate and had 'shiver with big shakes'. Hot hot flashes and would wake up sweating over the next 2 days. Increased fatigue. No nausea, vomiting, or diarrhea. mild constipation. No abdominal pain. Mild dry cough which is not new. Sputum has not changed, is clear. No rashes. No chest pain. Feels short of breath and a little tight breathign with no chest pain. Endorses diffuse muscle aches but worst behind his knees and in the thights. Took no medications today. Normal Meds: - Allopurinol for goul - Amlodipine no longer takes - Atorvastatin 80 for HLD - PEPCID daily 20mg - Methotrexate 8 tablets on Tuesdays (4 and 4mg AM/PM) for vasculitis and Purtscher's retinopathy. No longer on steroids. - Metoprolol 50mg AM hx of chronic dysuria since prostate cancer, seed implants No history of heart problems No history oflung problems No history of kidney disease Rare cigar, otherwise no tobacco use Rare social etoh use Leg swelling w hctz, otherwise no med allergies/rnx CODE STATUS: DNR/DNi, discussed at bedside Principal Diagnosis fever of undetrmined source Discharge Exam Pt awake and alert, he has no focal pain or complaints Discharge Data Allergies Allergy/AdvReac Type Severity Reaction Status Date / Time hydrochlorothiazide AdvReac Intermediate Leg Verified 09/24/23 10:02 Swellling Consultations 10/15/23 14:42 ED Decision to Admit Stat Ordered Studies Chest X-Ray 10/15/23 10:32 XR chest 1V portable CLINICAL HISTORY: Sepsis TECHNIQUE: Single frontal radiograph of the chest was obtained. Comparison: Comparison is made to chest radiograph 10/14/2023 FINDINGS: No lines and tubes are seen. The cardiomediastinal silhouette is normal. The lungs are clear. Blunting of the left costophrenic angle is secondary to extrapleural fat, although a small superimposed effusion cannot be excluded. IMPRESSION: No acute abnormalities and in particular no radiographic evidence of pneumonia. Exclude a small left effusion. ACT 112: Negative or not required by law. Electronically signed by: David Desai M.D. 10/15/2023 11:18 AM Chest CTA 10/15/23 11:48 CT angio chest PE protocol CLINICAL HISTORY: SOB, tachy, ?PE TECHNIQUE: Multidetector row helical CT of the chest was performed with angiographic protocol. Coronal and sagittal reformations were obtained. Coronal and sagittal MIPS were obtained from the axial data set and were submitted for review. Automated dose lowering techniques and/or adjustment according to patient size were utilized for this exam. CT DOSE: 887.81 mGy.cm Comparison: Comparison is made to CT chest 01/30/[address] abdomen pelvis 04/01/2023 FINDINGS: Lungs and pleura: Bronchiectasis and atelectasis are seen. Interstitial thickening is seen. Faint tree-in-bud nodularity is seen in the bilateral upper lobes. There are pulmonary nodules including the followin mm nodule in the right lung base (series 4 image 51). This was not seen on prior CT abdomen pelvis. 3 mm nodule in the left lower lobe (image 71), also not seen on prior CT abdomen pelvis. Heart and pericardium: Heart size is normal. No pericardial effusion. Vessels: Mild atherosclerotic changes in the aorta and coronary arteries. Mediastinum and zakiya: Subcentimeter lymph nodes are seen. Chest wall and lower neck: Unremarkable. Abdomen: A hiatal hernia is seen. Bones: Degenerative changes in the thoracic spine. IMPRESSION: 1. No evidence of pulmonary embolus. 2. Tree in bud nodularity of the bilateral upper lobes may represent infectious/inflammatory process with reactive lymph nodes. 3. New pulmonary nodules in the bilateral lung bases. Three-month follow-up is recommended to exclude underlying malignancy. Electronically signed by: David Desai M.D. 10/15/2023 12:56 PM Abdomen/Pelvis CT 10/17/23 08:[address] WITH ORAL CONTRAST CT DOSE: 1166.84 mGy.cm HISTORY: Acute generalized abdominal pain. eval for inta abd infection TECHNIQUE: Multiaxial CT images of the abdomen and pelvis were performed following the use of oral contrast. A dose lowering technique was utilized adhering to the principles of ALARA. COMPARISON STUDY: CTA chest October 15, 2023, CT abdomen and pelvis 04/01/2023. FINDINGS: Mild cardiomegaly. Subpleural reticulation with bilateral scattered reticulonodular densities are new from the 04/01/2023 study with a 7 mm subpleural nodule of the lingula on image 22. A 7 mm solid nodule is noted within the basal right lower lobe on image 43. No free air. The unenhanced spleen, mildly atrophic pancreas and adrenal glands are unremarkable. Contracted gallbladder with cholelithiasis. No CT evidence of acute cholecystitis. Unremarkable liver. Mild cortical thinning of the kidneys. No hydronephrosis, renal or ureteral calculi. Brachytherapy seeds of the prostate. Urinary bladder wall thickening with partial distention. Moderate- sized fat-filled left inguinal hernia. Atherosclerosis of the aorta. 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 No lymphadenopathy. Contrast is noted within the stomach and small bowel. Colonic diverticulosis. No bowel obstruction or bowel wall thickening. Mild lumbar levoscoliosis. Normal appendix. Unremarkable soft tissues. No acute fracture. IMPRESSION: 1. Bibasilar reticular nodular densities with pulmonary nodules measuring up to 8 mm. Findings are likely infectious or inflammatory. A 3-month follow-up chest CT is recommended. 2. No bowel obstruction or bowel wall thickening. 3. Cholelithiasis. 4. Colonic diverticulosis. 5. Additional findings as above. ACT 112: Negative or not required by law. The above report was generated using voice recognition software. It may contain grammatical, syntax or spelling errors. Dictated: 10/17/2023 1:09 PM Transcribed: 10/17/2023 4:22 PM Eleazar [id number] [email or web address] Electronically signed by: Curry Orozco M.D. 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 Patient does have mild and dysuria based but has had this since having radiation/significance and has not changed CTA of the chest is with upper lobe tree-in-bud opacities suspicious for pneumonia. CT abd/pelvis unremarkable for infectious etiology Bio fire is negative. Procalcitonin is negative. No lobar consolidation is p resent Lyme test and repeat test is negative, tickborne PCR panel is pending a send out; there is no transaminitis or leukopenia to suggest anaplasmosis Patient is empirically covered with cefepime/doxycycline will be d/c on doxycycline po Blood cultures are pending repeat blood cultures with fever on 10/16/2023 total 4 sets Patient denies joint and back pain. 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 He had no trauma preceding his vision loss, did have collateral vessel development. He has baseline only able to see some shadowing in the center of his vision out of his right eye -No acute change in vision. Patient takes methotrexate on Tuesdays. (3) GERD (gastroesophageal reflux disease): GERD Continue Pepcid daily (4) Hypertension: Continue metoprolol (5) History of radiation therapy: History of prostate cancer s/p radiation therapy/seed implantation UA uninfected appearing, mild epithelial cell contamination (6) Gout: History of gout Continue allopurinol (7) Hyperlipidemia: Hyperlipidemia Continue statin (8) Pulmonary nodule: CT-C: New pulmonary nodules are noted in bilateral lung bases and he will require 3-month follow-up to exclude malignancy. DDx includes vasculitic. Total Time Total Time Spent Total Time Spent (In Minutes): It required greater than 30 minutes to prepare this patient for discharge. Discharge Plan Discharge Items Patient Disposition: Home - Self-Care Reason For Visit: LETICIA NIXON Discharge Diagnosis: fever of undetermined origin Activity: Resume your previous activity Non-emergency contact: Primary Care Provider and Specialist Call non-emergency contact if: your symptoms worsen Follow-up/Referrals: Jesus Nobles DO [Physician] - 10/22/23 10:15 am (follow up: Dr Nobles 10/22/23 @ 10:15) Cassandra Lane MD [Primary Care Provider] - 10/26/23 1:00 pm (follow up: Dr. Alyssia Lane 10/26 @ 1:00) Diet: Regular Addtl Attending Provider Instructions: you had a fever without defined source, please do not take your methotrexate this week and follow up with Dr Nobles complete your antibiotics, we will continue to watch your blood cultures and call if anything results positive Addtl Color Coater Provider Instructions: please contact DR Guzman office for an appt this week Pending Studies at Discharge: Yes Studies:: blood cultures and send out testing for fungus Stand-Alone Forms: [email or web address], Work/School Release, Smoking Cessation Medications and DC Order Prescriptions: New doxycycline hyclate 100 mg capsule 100 mg PO BID 7 Days Qty: 14 0RF Continued calcium carbonate-vitamin D3 [Calcium with Vitamin D] 600 mg-10 mcg (400 unit) tablet 1 tab PO QPM cholecalciferol (vitamin D3) 25 mcg (1,000 unit) capsule 25 mcg PO QPM docusate sodium [Colace] 100 mg capsule 100 mg PO BID allopurinol 300 mg tablet 300 mg PO QAM famotidine [Pepcid] 20 mg tablet 20 mg PO PM atorvastatin [Lipitor] 80 mg tablet 80 mg PO QPM 90 Days Qty: 90 3RF amlodipine 2.5 mg tablet 2.5 mg PO PRN Qty: 30 2RF Rx Instructions: Take Amlodipine 2.5 mg daily as needed for SBP > 160 mm Hg metoprolol succinate 50 mg tablet extended release 24 hr 50 mg PO QAM folic acid 1 mg tablet 2 mg PO QAM Tylenol 1 tab PO UD Rx Instructions: as directed ibuprofen 1 tab PO UD Rx Instructions: as directed Held methotrexate sodium 2.5 mg tablet 2.5 mg PO .COMPLEX Qty: 96 0RF Hold Instructions: Resume on 10/27/23. Rx Instructions: 8 tabs po once a week in split dose. Discharge Orders: Discharge Order (Routine); Ordered 10/18/23 Ordered By: Sedrick Cesar/Other Patient Handouts: Giving IV Antibiotics Dc, When to Use Antibiotics Admission Data Admit Date/Time: 10/15/23 17:30 Attending Provider: Sedrick Ralph Admit Provider: Sean Awan Primary Care Provider: Cassandra Lane Other Providers: Sean Awan Other Interventions: Discharge Summary Assessment (RN) Last Done: 10/18/23 12:18 Coding Level of Care Code [id number] INP/OBS DISCH >30 MIN Diagnoses Fever R50.9 Positive PREMA (antinuclear antibody) R76.8 GERD (gastroesophageal reflux disease) K21.9 Hypertension I10 Hypertension type: primary hypertension History of radiation therapy Z92.3 Gout M10.9 Hyperlipidemia E78.5 Pulmonary nodule R91.1
[2023-10-19 21:52] LABS: Babesia microti DNA Not Detected (Not Detected)
[2023-10-20 11:09] LABS: Ehrlichia chaff DNA Bld Negative (Negative)
[2023-10-20 21:23] LABS: Q Fever IgG, Phase I NEGATIVE; Q Fever Phase I IgM Antibody NEGATIVE; Q Fever Phase II IgG Antibody NEGATIVE; Q Fever Phase II IgM Antibody NEGATIVE; R. typhi IgG Ab NOT DETECTED; R. typhi IgM Ab NOT DETECTED; RMSF IgG Ab NOT DETECTED; RMSF IgM Ab NOT DETECTED
[2023-10-21 20:37] LABS: Fungitell (1-3)-B-D-Glucan <31 pg/mL
== END 2023-10-18 13:05 | disposition home or self-care (01) | DRG 864 ==
LOC: ED 10:03 → SUATTDRO 17:30 → EDINP 17:30 → 2E 21:55